=== PATIENT | female | born 1975 | race Caucasian/White ===

== ENCOUNTER → 2016-06-23 | Outpatient (CLI) | payer MEDICARE ==
[~2016-06-23] MED LIST: ALLEGRA 180MG180 MG PO; AMANTADINE HCL100 M2 PO; ATIVAN 0.50.5 MG/TAB PO; CELEXA20 MG PO; COMPAZINE 110 MG/TAB PO; FOLIC ACID1 MG PO; JUNEL 1/20 20 M1 TAB PO; LOXAPINE SUCCIN10 MG PO; MESTINON60 MG PO; METHOTREXATE2.5 M1 PO; NUCYNTA50 MG PO; TORADOL 10MG TA10 MG PO; VITAMIN B1225 MCG PO; XANAX0.5 MG PO; ZOLPIDEM10 MG PO; [UNRECOGNIZED DRUG - OTHER] PO
== END ==
LOC: BHSO 10:23
DX: F41.1 Generalized anxiety disorder (principal)

== ENCOUNTER → 2016-08-03 | Outpatient (CLI) | payer MEDICARE | LOC: BHSO 11:49 | DX: F41.1 Generalized anxiety disorder (principal) ==

== ENCOUNTER → 2016-09-08 | Outpatient (CLI) | payer MEDICARE | LOC: BHSO 10:00 | DX: F33.1 Major depressive disorder, recurrent, moderate (principal) ==

== ENCOUNTER → 2016-11-03 | Outpatient (CLI) | payer MEDICARE | LOC: BHSO 14:11 | DX: F41.1 Generalized anxiety disorder (principal) ==

== ENCOUNTER → 2016-12-31 | Outpatient (CLI) | payer MEDICARE | LOC: BHSO 13:20 | DX: F41.1 Generalized anxiety disorder (principal) ==

== ENCOUNTER → 2017-01-07 | Outpatient (CLI) | payer MEDICARE | LOC: COL.RAD 09:55 | DX: S73.192A Other sprain of left hip, initial encounter (principal) | CPT/HCPCS: A9585; Q9967 ==

== ENCOUNTER → 2017-03-09 | Outpatient (CLI) | payer MEDICARE | LOC: BHSO 11:14 | DX: F41.1 Generalized anxiety disorder (principal) ==

== ENCOUNTER → 2017-05-06 | Outpatient (CLI) | payer MEDICARE | LOC: BHSO 11:05 | DX: F41.1 Generalized anxiety disorder (principal) | CPT/HCPCS: G0463 ==

== ENCOUNTER 2017-09-20 12:02 | Emergency (ER) | payer MEDICARE ==
[~2017-09-20] VITALS: Ht 167.6 cm; Wt 59.1 kg
[2017-09-20 12:17] VITALS: TEMP 98.8
[2017-09-20] MEDS ORDERED: ADIPEX-P37.5 MG PO (12:27)
[2017-09-20] MEDS ORDERED: NORVASC 5MG5 MG/TAB PO (12:27)
[2017-09-20] MEDS ORDERED: LEVOXYL0.05 MG PO (12:28)
[2017-09-20] MEDS ORDERED: ATIVAN2 MG PO (12:37)
[2017-09-20] MEDS ORDERED: DESYREL DIVIDO300 MG PO (12:42)
[2017-09-20] MEDS ORDERED: LAMICTAL 25MG T25 MG PO (12:42)
[2017-09-20] MEDS ORDERED: ZOLOFT 100MG100 MG PO (12:43)
[2017-09-20] MEDS ORDERED: TYLENOL #4 (1 UDTAB PO (12:45)
[2017-09-20] MEDS ORDERED: KRISTALOSE10 GM/PACK PO (12:45)
[2017-09-20] MEDS ORDERED: COLACE 100100 MG/CAP PO (12:46)
[2017-09-20] MEDS ORDERED: BLISOVI 24 FE1 EACH PO (12:47)
[2017-09-20 13:03] LABS: BASO % 0.3 % (0.0-2.0); EOS % 0.7 % (0-4.0); GRAN # 4.2 (1.4-6.5); GRAN % 67.4 % (42.2-75.2); HEMATOCRIT 38.9 % (37.0-47.0); HEMOGLOBIN 12.8 g/dl (12.5-16.0); LYMPH # 1.4 (1.2-3.4); MEAN CELL VOLUME 93 fl (80.0-100.0); MEAN CORPUSCULAR HEMOGLOBIN 31 pg (27.0-31.0); MEAN CORPUSCULAR HGB CONC 33 g/dl (33.0-37.0); MEAN PLATELET VOLUME 9.1 fl (7.4-10.4); MONO # 0.6 (0.1-0.6); MONO % 8.9 % (1.7-9.3); PLATELET COUNT 431 K/mm3 (130-400); RED BLOOD COUNT 4.17 M/mm3 (4.10-5.30); REDCELL DISTRIBUTION WIDTH-CV 13.2 % (11.5-14.5)
[2017-09-20 13:14] LABS: ALANINE AMINOTRANSFERASE 23 U/L (9-52); ALKALINE PHOSPHATASE 61 U/L (50-136); ANION GAP 12 mmol/L (7-16); AST,SGOT 25 U/L (15-37); BILIRUBIN,TOTAL 0.3 mg/dL (0.0-1.0); BLOOD UREA NITROGEN 5 mg/dL (7-17); C-REACTIVE PROTEIN 1.9 mg/dL (0.0-0.9); CALCIUM 8.9 mg/dL (8.4-10.2); CARBON DIOXIDE 25 mmol/L (22-30); CHLORIDE 99 mmol/L (98-107); CREATINE KINASE 50 U/L (30-135); CREATININE, serum 0.76 mg/dL (0.52-1.25); GLUCOSE 101 mg/dL (74-106); POTASSIUM 3.7 mmol/L (3.4-5.0); SODIUM 137 mmol/L (137-145); TOTAL PROTEIN 7.6 gm/dL (6.4-8.2)
[2017-09-20 13:23] LABS: COLLECTION METHOD CLEAN CATCH
[2017-09-20 13:24] LABS: TROPONIN-I < 0.012 ng/mL (0.000-0.034)
[2017-09-20 13:30] LABS: PH 6 (5-8); SQUAMOUS EPITHELIAL 0-2 /hpf; URINE APPEARANCE Clear; URINE BACTERIA None Seen /hpf; URINE BILIRUBIN Negative (NEGATIVE); URINE BLOOD 1+ (NEGATIVE); URINE COLOR Straw; URINE GLUCOSE Negative (NEGATIVE); URINE KETONE Negative (NEGATIVE); URINE LEUKOCYTE ESTERASE Negative (NEGATIVE); URINE NITRATE Negative (NEGATIVE); URINE PROTEIN(semi-quant) Negative (NEGATIVE); URINE RBC 0-2 /hpf; URINE UROBILINOGEN Negative (NEGATIVE)
[2017-09-20 15:36] VITALS: BP 142/83; PULSE 80
== END 2017-09-20 15:25 | disposition home or self-care (01) ==
LOC: COL.ER 12:02
PROVIDERS: Emergency Medicine
DX: R07.89 Other chest pain (principal); R53.81 Other malaise; G43.909 Migraine, unspecified, not intractable, without status migrainosus; F41.9 Anxiety disorder, unspecified; F32.9 Major depressive disorder, single episode, unspecified; M79.7 Fibromyalgia
CPT/HCPCS: J2405; J7030

== ENCOUNTER → 2018-01-27 | Outpatient (CLI) | payer MEDICARE ==
[~2018-01-27] MED LIST changes: +ADIPEX-P37.5 MG PO; +ATIVAN2 MG PO; +BLISOVI 24 FE1 EACH PO; +COLACE 100100 MG/CAP PO; +DESYREL DIVIDO300 MG PO; +KRISTALOSE10 GM/PACK PO; +LAMICTAL 25MG T25 MG PO; +LEVOXYL0.05 MG PO; +NORVASC 5MG5 MG/TAB PO; +TYLENOL #4 (1 UDTAB PO; +ZOLOFT 100MG100 MG PO
== END ==
LOC: MC.RAD 12-17 11:40
DX: Z12.31 Encounter for screening mammogram for malignant neoplasm of breast (principal); R92.1 Mammographic calcification found on diagnostic imaging of breast

== ENCOUNTER → 2018-02-03 | Outpatient (CLI) | payer MEDICARE | LOC: MC.RAD 13:30 | DX: R92.0 Mammographic microcalcification found on diagnostic imaging of breast (principal) ==

== ENCOUNTER 2018-04-25 14:06 | Emergency (ER) | payer MEDICARE ==
[~2018-04-25] VITALS: Ht 170.2 cm; Wt 68.2 kg
[2018-04-25 14:15] VITALS: TEMP 97
[2018-04-25 17:38] VITALS: BP 137/88; PULSE 88
== END 2018-04-25 17:39 | disposition home or self-care (01) ==
LOC: COL.ER 14:06
DX: G43.909 Migraine, unspecified, not intractable, without status migrainosus (principal); F32.9 Major depressive disorder, single episode, unspecified; F41.9 Anxiety disorder, unspecified; Z98.890 Other specified postprocedural states
CPT/HCPCS: J1200; J1630; J1885; J2060; J2405; J2765; J7030

== ENCOUNTER 2018-04-27 15:46 | Outpatient (CLI) | payer MEDICARE ==
[~2018-04-27] VITALS: Ht 167.6 cm; Wt 61.2 kg
[2018-04-27] MEDS ORDERED: FLINTSTONES COM1 CT1 PO (16:35)
[2018-04-27] MEDS ORDERED: IMITREX 5MGNAS NS (16:37)
[2018-04-27] MEDS ORDERED: ADVIL200 MG PO (16:38)
[2018-04-27] MEDS ORDERED: BENADRYL50 MG PO (16:39)
[2018-04-27] MEDS ORDERED: DIFLUCAN150 MG PO (16:40)
[2018-04-27] MEDS ORDERED: LIDOCAINE HC20 MG/M2 (16:42)
[2018-04-27] MEDS ORDERED: PREVIDENT5000PLUS DT (16:44)
[2018-04-27] MEDS ORDERED: SUDAFED30 MG PO (16:44)
[2018-04-27] MEDS ORDERED: VERAPAMIL 440 MG/TAB PO (16:46)
[2018-04-27] MEDS ORDERED: [UNRECOGNIZED DRUG - OTHER] TP (16:47)
[2018-04-27 16:56] VITALS: BP 166/82; PULSE 81; TEMP 97.2
[2018-04-29] MEDS ORDERED: SPRINTEC 35 MCG1 TAB PO (14:36)
[2018-04-29] MEDS ORDERED: FLEXERIL 1010 MG/TAB PO (14:36)
== END 2018-04-27 18:30 | disposition home or self-care (01) ==
LOC: EUO 15:46
DX: G43.711 Chronic migraine without aura, intractable, with status migrainosus (principal)
CPT/HCPCS: J2405

== ENCOUNTER 2018-05-12 08:02 | Emergency (ER) | payer MEDICARE ==
[~2018-05-12] VITALS: Ht 170.2 cm; Wt 68.2 kg
[~2018-05-12 08:02] MED LIST changes: +ADVIL200 MG PO; +BENADRYL50 MG PO; +DIFLUCAN150 MG PO; +FLEXERIL 1010 MG/TAB PO; +FLINTSTONES COM1 CT1 PO; +IMITREX 5MGNAS NS; +LIDOCAINE HC20 MG/M2; +PREVIDENT5000PLUS DT; +SPRINTEC 35 MCG1 TAB PO; +SUDAFED30 MG PO; +VERAPAMIL 440 MG/TAB PO; +[UNRECOGNIZED DRUG - OTHER] TP
[2018-05-12 08:10] VITALS: TEMP 98
[2018-05-12 08:48] LABS: BASO # 0.1 (0.0-0.2); BASO % 0.7 % (0.0-2.0); EOS # 0.1 (0.0-0.7); EOS % 1.1 % (0-4.0); GRAN # 5.7 (1.4-6.5); GRAN % 62.3 % (42.2-75.2); HEMATOCRIT 28.8 % (37.0-47.0); HEMOGLOBIN 9.7 g/dl (12.5-16.0); LYMPH # 2.5 (1.2-3.4); LYMPH % 27.9 % (20.0-51.0); MEAN CELL VOLUME 99 fl (80.0-100.0); MEAN CORPUSCULAR HEMOGLOBIN 33 pg (27.0-31.0); MEAN CORPUSCULAR HGB CONC 34 g/dl (33.0-37.0); MEAN PLATELET VOLUME 9.1 fl (7.4-10.4); MONO # 0.6 (0.1-0.6); PLATELET COUNT 537 K/mm3 (130-400); RED BLOOD COUNT 2.92 M/mm3 (4.10-5.30); REDCELL DISTRIBUTION WIDTH-CV 13.7 % (11.5-14.5)
[2018-05-12 08:57] LABS: ALBUMIN 3.4 gm/dL (3.5-5.0); BILIRUBIN,TOTAL 0.3 mg/dL (0.0-1.0); CALCIUM 8.7 mg/dL (8.4-10.2); CREATININE, serum 0.79 mg/dL (0.52-1.25); POTASSIUM 3.4 mmol/L (3.4-5.0); TOTAL PROTEIN 6.1 gm/dL (6.4-8.2)
[2018-05-12 09:06] LABS: ARTERIAL BLD GAS O2 SATURATION 99.3 % (92-100); ARTERIAL BLD GAS TCO2 CT 22.8; ARTERIAL BLOOD GAS BASE EXCESS 0.9 (-2-2); ARTERIAL BLOOD GAS PCO2 25.1 mmHg (35-45); ARTERIAL BLOOD GAS pH 7.56 (7.35-7.45)
[2018-05-12 09:07] LABS: ARTERIAL BLOOD GAS PO2 331.9 mmHg (80-100)
[2018-05-12 09:13] LABS: PROLACTIN 196.6 ng/mL (3.0-18.6)
[2018-05-12 10:00] VITALS: BP 140/84; PULSE 87
== END 2018-05-12 10:00 | disposition short-term general hospital (02) ==
LOC: COL.ER 08:02
PROVIDERS: Emergency Medicine
DX: R41.82 Altered mental status, unspecified (principal); Z87.820 Personal history of traumatic brain injury; Z79.1 Long term (current) use of non-steroidal anti-inflammatories (NSAID); Z98.890 Other specified postprocedural states
CPT/HCPCS: J1953; J2060; J2250; J3010

== ENCOUNTER → 2018-08-15 | Outpatient (CLI) | payer MEDICARE | LOC: MC.RAD 08-08 08:30 | DX: R92.0 Mammographic microcalcification found on diagnostic imaging of breast (principal) | CPT/HCPCS: G0279 ==

== ENCOUNTER → 2019-04-25 | Outpatient (CLI) | payer MEDICARE | LOC: BHSO 08:30 | DX: F33.1 Major depressive disorder, recurrent, moderate (principal) | CPT/HCPCS: G0463 ==

== ENCOUNTER → 2019-06-02 | Outpatient (CLI) | payer MEDICARE | LOC: BHSO 10:38 | DX: F33.1 Major depressive disorder, recurrent, moderate (principal) | CPT/HCPCS: G0463 ==

== ENCOUNTER → 2019-07-11 | Outpatient (CLI) | payer MEDICARE | LOC: BHSO 11:37 | DX: F33.41 Major depressive disorder, recurrent, in partial remission (principal) | CPT/HCPCS: G0463 ==

== ENCOUNTER → 2019-10-17 | Outpatient (CLI) | payer MEDICARE | LOC: BHSO 11:42 | DX: F41.1 Generalized anxiety disorder (principal) | CPT/HCPCS: G0463 ==

== ENCOUNTER → 2020-11-07 | Outpatient (CLI) | payer MEDICARE | LOC: MC.RAD 10:00 | DX: R92.8 Other abnormal and inconclusive findings on diagnostic imaging of breast (principal); N64.89 Other specified disorders of breast ==

== ENCOUNTER → 2021-05-14 | Outpatient (CLI) | payer MEDICARE | LOC: MC.RAD 05-12 09:00 | DX: N64.89 Other specified disorders of breast (principal) ==

== ENCOUNTER 2021-05-28 13:51 | Outpatient (RCR) | payer MEDICARE ==
[2021-05-23 13:30] VITALS: BP 153/91; PULSE 85; TEMP 99.4
--- NOTE | 2021-05-23 14:00 | NUR ---
Pharmacy calls unit and informs this nurse that pt's medication has not arrived in today's shipment. Pt rescheduled to return Wed for infusion. Pharmacy will notify unit if medication arrives sooner. Account changed to [facility]. Pt expresses understanding of need to reschedule and is aggreeable. INT DC'd with catheter intact and she exits dept with steady gait.
[~2021-05-28] VITALS: Ht 167.6 cm; Wt 79.3 kg
[2021-05-28 13:00] VITALS: BP 143/88; PULSE 94; TEMP 98.6
[2021-05-28] MEDS ORDERED: TYLENOL 325MG325 MG PO (15:36)
[2021-05-28] MEDS ORDERED: MASON NATURAL2000 IU PO (15:39)
[2021-05-28] MEDS ORDERED: ABILIFY5 MG PO (15:39)
[2021-05-28] MEDS ORDERED: VIENVA-28 TABL1 EACH PO (15:40)
[2021-05-28] MEDS ORDERED: PEPCID 20MG TAB20 MG PO (15:40)
[2021-05-28] MEDS ORDERED: VYEPTI100 MG/1 M IV (15:40)
[2021-05-28] MEDS ORDERED: MELATONIN5 M1 PO (15:41)
[2021-05-28] MEDS ORDERED: NAPROSYN500 MG PO (15:43)
[2021-05-28] MEDS ORDERED: PRIL40 PO (15:43)
[2021-05-28] MEDS ORDERED: REQUIP XL2 MG PO (15:44)
[2021-05-28] MEDS ORDERED: IMITREX100 MG PO (15:45)
[2021-05-28] MEDS ORDERED: BELSOMRA20 MG PO (15:45)
[2021-05-28] MEDS ORDERED: ZANAFLEX CAPSULE6 MG PO (15:46)
[2021-05-28] MEDS ORDERED: VERAPAMIL180 MG/TAB PO (15:47)
== END 2021-05-28 15:00 ==
LOC: EUO 13:51
DX: G43.019 Migraine without aura, intractable, without status migrainosus (principal)
CPT/HCPCS: J3032

== ENCOUNTER → 2021-11-13 | Outpatient (CLI) | payer MEDICARE ==
[~2021-11-13] MED LIST changes: +ABILIFY5 MG PO; +BELSOMRA20 MG PO; +IMITREX100 MG PO; +MASON NATURAL2000 IU PO; +MELATONIN5 M1 PO; +NAPROSYN500 MG PO; +PEPCID 20MG TAB20 MG PO; +PRIL40 PO; +REQUIP XL2 MG PO; +TYLENOL 325MG325 MG PO; +VERAPAMIL180 MG/TAB PO; +VIENVA-28 TABL1 EACH PO; +VYEPTI100 MG/1 M IV; +ZANAFLEX CAPSULE6 MG PO
== END ==
LOC: MC.RAD 10:58
DX: R92.8 Other abnormal and inconclusive findings on diagnostic imaging of breast (principal)